=== PATIENT | female | born 1985 | race Hispanic/Latino ===

== ENCOUNTER 2020-10-19 17:06 | Emergency (ER) | payer MEDICAID, OTHER ==
[~2020-10-19] VITALS: Ht 152.4 cm; Wt 74.8 kg
[2020-10-19 17:08] VITALS: BP 143/86
== END 2020-10-19 18:58 | disposition home or self-care (01) ==
LOC: EDH 17:06
DX: B34.9 Viral infection, unspecified (principal); R03.0 Elevated blood-pressure reading, without diagnosis of hypertension; Z20.822 Contact with and (suspected) exposure to COVID-19
CPT/HCPCS: 87635; 87804 ×2; 99283; C9803